=== PATIENT | female | born 1960 | race Caucasian/White ===

== ENCOUNTER 2021-10-05 19:36 | Emergency (ER) | payer OTHER ==
[2021-10-05 20:26] LABS: HEMOGLOBIN 12.6 gm/dl (12.3-15.3); RED BLOOD COUNT 3.95 M/UL (4.00-5.10); WHITE BLOOD COUNT 5.2 K/UL (4.5-11.0)
[2021-10-05 20:49] LABS: BUN/CREATININE RATIO 16 (0-10)
[2021-10-05] MEDS ORDERED: ZOFRAN ODT 4 MG4 MG SL (23:29)
== END 2021-10-05 23:39 | disposition home or self-care (01) ==
LOC: ER1 19:36
PROVIDERS: Preventive Medicine Occupational Medicine
DX: U07.1 COVID-19 (principal); J01.90 Acute sinusitis, unspecified; E87.1 Hypo-osmolality and hyponatremia; I10 Essential (primary) hypertension; I45.10 Unspecified right bundle-branch block
CPT/HCPCS: 0240U; 36600; 70450; 71045; 80053; 82009; 82550; 82553; 82803; 83690; 83880; 84484; 85025; 85652; 86140; 93005; 94664; 96360; 99284